=== PATIENT | female | born 2000 | race Caucasian/White ===

== ENCOUNTER 2020-12-01 00:08 | Emergency (ER) | payer OTHER ==
[~2020-12-01] VITALS: Ht 162.6 cm; Wt 77.1 kg
[~2020-12-01 00:08] MED LIST: CEPHALEXIN500 MG PO; KEFLEX500 MG PO; MINOCYCLINE HCL50 MG PO; NORCO 5-325 TA1 EACH PO; REMICADE100 MG/10 IV
[2020-12-01] MEDS ORDERED: HYDROCODON-ACE1 EA10 PO (03:16)
[2020-12-01] MEDS ORDERED: CEPHALEXIN500 MG PO (03:16)
== END 2020-12-01 03:57 | disposition home or self-care (01) ==
LOC: ED 00:08
DX: R10.9 Unspecified abdominal pain (principal)
CPT/HCPCS: 74176; 80053; 81001; 84703; 85025; 96374; 96375; 96376; 99284-25; J0696; J1170; J1885; J2405; J7030

== ENCOUNTER 2024-02-23 03:40 | Emergency (ER) | payer BC ==
[~2024-02-23] VITALS: Ht 162.6 cm; Wt 82.0 kg
[~2024-02-23 03:40] MED LIST changes: +HYDROCODON-ACE1 EA10 PO
[2024-02-23] MEDS ORDERED: KETOROLAC TROMETHAMINE 30 MG/ML VIAL IV ONE (04:15)
[2024-02-23 04:40] VITALS: BP 128/76
[2024-02-23] MEDS ORDERED: LEVOFLOXACIN750 MG PO (06:44)
--- NOTE | 2024-02-25 15:38 | EKG ---
[facility] [address] [facility] [place] [address] Signed Normal sinus rhythm with sinus arrhythmia Normal ECG No previous ECGs available Confirmed by Nidia Renee MD ([id number]) on 02/25/2024 3:38:24 PM Electronically Signed By: NIDIA RENEE MD 02/25/24 1538 PATIENT NAME: LAMBERTO BRIGGS Electrocardiogram DATE OF : [birth year] PHYSICIAN: NIDIA RENEE MD REPORT #: [id number] REPORT IS CONFIDENTIAL AND NOT TO BE RELEASED WITHOUT AUTHORIZATION
== END 2024-02-23 04:44 | disposition home or self-care (01) ==
LOC: ED 03:40
DX: R07.89 Other chest pain (principal)
CPT/HCPCS: 36415; 71045; 84703; 85379; 93005; 93010; 96374; 99285-25; J1885